=== PATIENT | male | born 1990 | race Two or more races ===

== ENCOUNTER 2019-05-10 05:20 | Emergency (ER) | payer MEDICAID, OTHER ==
[~2019-05-10] VITALS: Ht 172.7 cm; Wt 84.0 kg
[~2019-05-10 05:20] MED LIST: DICY20TA11 MT; ONDA4TAB11 PO; TOPUD PO
[2019-05-10] MEDS ORDERED: KETOROLAC 30MG/ML VIAL IV STA (06:36)
[2019-05-10] MEDS ORDERED: ONDANSETRON HCL 4MG/2ML INJ IV STA (06:36)
[2019-05-10] MEDS ORDERED: SODIUM CHLORIDE 0.9% 1,000 ML IV ONE (06:36)
[2019-05-10] MEDS ORDERED: MAGNESIUM/ALUMINUM HYDROXIDE/SIMETHICONE 30ML UDC PO STA (06:36)
[2019-05-10 06:55] LABS: HEMATOCRIT. 44.3 % (42.0-52.0); MEAN CORPUSCULAR HEMOGLOBIN 29.7 pg (28.0-32.0); MEAN CORPUSCULAR VOLUME 87.8 fL (80.0-94.0); MEAN PLATELET VOLUME 7.5 fl (7.4-10.4); PLATELET 239 x1000/uL (130-400); RED BLOOD CELL COUNT 5.05 mill/uL (4.7-6.1); RED CELL DISTRIBUTION WIDTH 14.2 % (11.6-14.6)
[2019-05-10 07:03] LABS: CHLORIDE 104 mEq/L (98-107)
[2019-05-10 07:05] LABS: ETHANOL BLOOD 63 mg/dL
[2019-05-10 07:53] LABS: PLATELET ESTIMATE NORMAL
[2019-05-10 07:54] LABS: CLARITY URINE CLEAR (CLEAR); COLOR URINE YELLOW (YELLOW); KETONES URINE TRACE (NEGATIVE); LEUKOCYTE ESTERASE URINE NEGATIVE (NEGATIVE); NITRITE URINE NEGATIVE (NEGATIVE); OCCULT BLOOD URINE NEGATIVE (NEGATIVE); PH URINE 8.5 (4.5-8.0); PROTEIN URINE 1+ (NEGATIVE); SPECIFIC GRAVITY URINE 1.024 (1.005-1.030); UROBILINOGEN URINE 0.2 E.U./dL (0.2-1.0)
[2019-05-10 08:24] LABS: *AMPHETAMINES SCREEN URINE NEGATIVE (NEGATIVE)
[2019-05-10 08:25] LABS: *BARBITURATES SCREEN URINE NEGATIVE (NEGATIVE); *BENZODIAZEPINES SCREEN URINE NEGATIVE (NEGATIVE); *COCAINE SCREEN URINE NEGATIVE (NEGATIVE); METHADONE URINE SCREEN NEGATIVE (NEGATIVE); OPIATES URINE SCREEN NEGATIVE (NEGATIVE); PHENCYCLIDINE URINE SCREEN NEGATIVE (NEGATIVE)
[2019-05-10 08:26] LABS: CANNABINOID URINE SCREEN NEGATIVE (NEGATIVE)
[2019-05-10 09:15] VITALS: BP 118/63
== END 2019-05-10 09:15 | disposition home or self-care (01) ==
LOC: ER 05:20
DX: R10.9 Unspecified abdominal pain (principal)
CPT/HCPCS: 36415; 74176; 80053; 80305; 80320; 81003; 83690; 85025; 96374; 96375; 99284; J1885; J2405; J7030; Z7610; G0480